=== PATIENT | male | born 1980 | race African-American/Black ===

== ENCOUNTER 2016-10-29 14:36 | Emergency (ER) | payer SELFPAY ==
[~2016-10-29] VITALS: Ht 152.4 cm; Wt 97.5 kg
[~2016-10-29 14:36] MED LIST: AMOXIL500 MG PO; PREDNISONE 20MG20 MG PO
[2016-10-29 14:55] VITALS: BP 148/82
== END 2016-10-29 16:56 | disposition admitted as inpatient to this hospital (09) ==
LOC: ERH 14:36
DX: J02.9 Acute pharyngitis, unspecified (principal); Z53.21 Procedure and treatment not carried out due to patient leaving prior to being seen by health care provider